=== PATIENT | female | born 1995 | race Caucasian/White ===

== ENCOUNTER 2020-01-21 18:43 | Outpatient (CLI) | payer OTHER ==
[2020-01-21 20:29] VITALS: BP 140/86; PULSE 95; RESP 16; TEMP 98.2
== END 2020-01-21 20:10 | disposition home or self-care (01) ==
LOC: FBPOP 18:43
PROVIDERS: ATTEND Obstetrics & Gynecology
DX: O99.89 Other specified diseases and conditions complicating pregnancy, childbirth and the puerperium (principal); M54.9 Dorsalgia, unspecified; Z3A.31 31 weeks gestation of pregnancy
CPT/HCPCS: 59025; 81003; G0463; 99213

== ENCOUNTER 2020-03-19 05:32 | Inpatient (IN) | payer OTHER ==
[2020-03-19] MEDS ORDERED: CARBOPROST TROMETHAMINE 250 MCG/ML 1 ML AMP IM PRN (06:11)
[2020-03-19] MEDS ORDERED: OXYTOCIN 10 UNIT/ML 1 ML VIAL IM PRN (06:11)
[2020-03-19] MEDS ORDERED: TERBUTALINE 1 MG/ML VIAL SQ PRN (06:11)
[2020-03-19] MEDS ORDERED: PENICILLIN G POTASSIUM 5,000,000 UNIT in DEXTROSE 5% IN WATER 100 ML IVPB STA ×2 (06:11)
[2020-03-19] MEDS ORDERED: LIDOCAINE 0.5% (PF) 5 MG/ML (50 ML SDV) SQ PRN (06:11)
[2020-03-19] MEDS ORDERED: METHYLERGONOVINE 0.2 MG/ML 1 ML AMP IM PRN (06:11)
[2020-03-19] MEDS ORDERED: OXYTOCIN 30 UNITS/500 ML NS 30 UNIT in SALINE 1 500ML.BAG IV SCH (06:15)
[2020-03-19] MEDS: LACTATED RINGERS 1,000 ML IV SCH ×2 (06:36→08:35)
[2020-03-19] MEDS ORDERED: BUTORPHANOL 1 MG/ML 1 ML VIAL IV PRN (06:51)
[2020-03-19 06:52] LABS: Basophils % (A) 0 %; Eosinophils # (A) 0.2 k/uL (0-0.7); Eosinophils % (A) 1 %; HCT 40.2 % (34.0-46.0); HGB 13.1 gm/dL (11.4-16.0); Lymphocytes # (A) 2.1 k/uL (1.0-4.8); Lymphocytes % (A) 15 %; MCH 28.6 pg (25.0-35.0); MCHC 32.6 g/dL (31.0-37.0); MCV 87.8 fL (80.0-100.0); Mean Platelet Volume 8.9; Monocytes # (A) 0.8 k/uL (0-1.0); Monocytes % (A) 6 %; Neutrophils # (A) 10.8 k/uL (1.3-7.7); Neutrophils % (A) 76 %; Platelet Count 214 k/uL (150-450); RBC 4.58 m/uL (3.80-5.40); RDW 12.9 % (11.5-15.5); WBC 14.2 k/uL (3.8-10.6)
[2020-03-19] MEDS ORDERED: SODIUM CHLORIDE 0.9% 100 ML BAG ONE (08:10)
[2020-03-19] MEDS ORDERED: ROPIVACAINE 5MG/ML 20ML VIAL ONE (08:10)
[2020-03-19] MEDS ORDERED: fentaNYL (PF) 50 MCG/ML 5 ML AMP ONE (08:10)
[2020-03-19] MEDS: PENICILLIN G POTASSIUM 2,500,000 UNIT in DEXTROSE 5% IN WATER 100 ML IVPB SCH ×4 (10:04→14:49)
--- NOTE | 2020-03-19 11:23 | P.HPOB ---
History of Present Illness H&P Date: 03/19/20 Chief Complaint: My water broke at 5 AM This is a 24-year-old black female 1 para 0 EDC 03/22/19 at 39-4/7 weeks' gestation. Patient presented earlier this morning with complaint of spontaneous amniorrhexis, clear fluid, which occurred at home at approximate 05 100. She was having mild sporadic uterine contractions upon admission. Ruptured membranes was diagnosed and confirmed by amnio sure testing. Fetus is been active throughout the . Past medical history is significant for scoliosis, mild. Past surgical history appendectomy at age 3 months. Current medications vitamins daily. ALLERGIES none known. Family history is essentially negative. Social history patient is single, father of the baby is present and involved. 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 history significant for blood type O+, group B strep cultures positive. Rubella status immune. VDRL testing, urine culture, hepatitis B surface antigen, gonorrhea and chlamydia cultures all negative. One-hour Glucola 117. On exam this is a pleasant black female who is 5 foot 5 inches, 199 pounds, blood pressure 145/82 on admission, vital signs otherwise stable. General physical exam is within normal limits. Cervix on exam is 2 cm dilated, posterior, long, -2 station, vertex. Amnio sure testing is consistent with ruptured membranes. heart rate is consistent with reactive NST. Impression: 39-4/7 weeks intrauterine , spontaneous amniorrhexis, positive group B strep cultures. All signs reassuring. Plan: Penicillin G prophylaxis as per protocol. Oxytocin augmentation. Analgesic options reviewed with the patient. Close maternal and surveillance. Anticipate normal spontaneous vaginal delivery. Review of Systems Constitutional: Reports as per HPI Past Medical History Past Medical History: No Reported History History of Any Multi-Drug Resistant Organisms: None Reported Past Surgical History: Appendectomy Past Anesthesia/Blood Transfusion Reactions: No Reported Reaction Past Psychological History: Anxiety Smoking Status: Never smoker Past Alcohol Use History: None Reported Past Drug Use History: None Reported - Past Family History Mother Family Medical History: No Reported History Medications and Allergies Home Medications Medication Instructions Recorded Confirmed Type Pnv,Calcium 72/Iron/Folic Acid 1 each PO DAILY 01/21/20 01/21/20 History [ Plus Tablet] Allergies Allergy/AdvReac Type Severity Reaction Status Date / Time No Known Allergies Allergy Verified 03/19/20 05:45 Exam Vital Signs Temp Pulse Resp BP 03/19/20 11:06 99.2 F 105 H 18 127/59 03/19/20 06:07 97.0 F L 101 H 16 145/82 03/19/20 05:44 97.0 F L 101 H 16 145/82 Intake and Output 03/18/20 03/19/20 03/19/20 22:59 06:59 14:59 Other: Weight 90.265 kg See dictation under HPI please Results Result Diagrams: 03/19/20 06:30 Abnormal Lab Results - Last 24 Hours (Table) 03/19/20 Range/Units 06:30 WBC 14.2 H (3.8-10.6) k/uL Neutrophils # 10.8 H (1.3-7.7) k/uL Assessment and Plan Assessment: 39-4/7 weeks intrauterine , early labor, positive group B strep cultures. All signs reassuring. Plan: Penicillin G prophylaxis per hospital protocol. Close maternal and surveillance. Analgesic options reviewed. Oxytocin per hospital protocol. Anticipate normal spontaneous vaginal delivery. Time with Patient: Less than 30
[2020-03-19] MEDS ORDERED: ACETAMINOPHEN TAB 325 MG TAB PO PRN (11:26)
[2020-03-19] MEDS ORDERED: HYDROCORTISONE 2.5% RECTAL CREAM 30 GM TUBE RECTAL PRN (11:26)
[2020-03-19] MEDS ORDERED: diphenhydrAMINE 50 MG/ML 1 ML VIAL IVP PRN ×2 (11:26)
[2020-03-19] MEDS ORDERED: SIMETHICONE 80 MG CHEWABLE PO PRN (11:26)
[2020-03-19] MEDS ORDERED: ZOLPIDEM 5 MG TAB PO PRN (11:26)
[2020-03-19] MEDS ORDERED: IBUPROFEN 600 MG TAB PO PRN (11:26)
[2020-03-19] MEDS ORDERED: diphenhydrAMINE 25 MG CAP PO PRN (11:26)
[2020-03-19] MEDS ORDERED: BENZOCAINE/MENTHOL SPRAY 1 GM/SPRAY AEROSOL TOPICAL PRN (11:26)
[2020-03-19] MEDS ORDERED: LANOLIN CREAM 5 GM TUBE TOPICAL PRN (11:26)
[2020-03-19] MEDS ORDERED: diphenhydrAMINE 50 MG CAP PO PRN (11:26)
[2020-03-19] MEDS ORDERED: WITCH HAZEL 1 EACH MED..PAD TOPICAL PRN (11:26)
--- NOTE | 2020-03-19 11:26 | P.PROBDLV ---
Vaginal Delivery Note - . Vaginal Delivery Note: This is a 24-year-old black female 1 para 0 EDC 03/22/2020 at 39-4/7 weeks' gestation. Patient presented earlier today with spontaneous amniorrhexis which occurred at home, clear fluid. remarkable for positive group B strep cultures, blood type O positive, rubella status immune. Please see my dictated history and physical for details. On admission patient was 2 cm dilated. Oxytocin was started and titrated per hospital protocol. She did receive 2 doses of penicillin G prophylaxis per our hospital protocol. Epidural was placed per her request. heart tones were reassuring throughout the first and second stages of labor. Patient became completely dilated at 1220 hrs. Perineal body was prepped and draped in usual sterile fashion. With excellent maternal expulsive efforts 's head delivered occiput anterior and she restituted accordingly. There was no nuchal cord noted. The left or anterior shoulder was gently delivered from underneath the pubic symphysis at which time the oropharynx, nasopharynx, and external nares were all bulb suctioned. Patient was officially delivered of a liveborn female at 1056 hrs. Umbilical cord was doubly clamped and ligated, she was handed to waiting nurses for evaluation where scores of 8 and 9 at one and 5 minutes respectively were given. The placenta delivered spontaneously with active management, it was inspected and noted to be intact with trivascular cord at 11 00. Uterus is then massaged. Careful inspection of the cervix, vagina, perineum, periurethral, and perirectal areas revealed a small left labial laceration. This was repaired in the usual fashion using 3-0 repeat suture. Good reapproximation was noted. Total estimated blood loss 300 mL's. Infant weighed 7 lbs. 2 oz. or 3225 g. The fundus is firm and in the midline, symmetric and 18 week size upon completion of delivery. Patient and her are allowed to begin the bonding experience in the LDR.
[2020-03-19] MEDS ORDERED: OXYTOCIN 20 UNITS/1000 ML NS 1,000 ML IV SCH (11:30)
[2020-03-19] MEDS: SENNOSIDES-DOCUSATE SODIUM 1 EACH TAB PO SCH (22:17)
[2020-03-20 05:37] LABS: Basophils % (A) 0 %; Eosinophils # (A) 0.2 k/uL (0-0.7); Eosinophils % (A) 1 %; HCT 32.2 % (34.0-46.0); HGB 10.5 gm/dL (11.4-16.0); Lymphocytes # (A) 3.1 k/uL (1.0-4.8); Lymphocytes % (A) 20 %; MCH 28.7 pg (25.0-35.0); MCHC 32.7 g/dL (31.0-37.0); MCV 87.7 fL (80.0-100.0); Mean Platelet Volume 8.6; Monocytes # (A) 0.7 k/uL (0-1.0); Monocytes % (A) 4 %; Neutrophils # (A) 11.2 k/uL (1.3-7.7); Neutrophils % (A) 72 %; Platelet Count 198 k/uL (150-450); RBC 3.67 m/uL (3.80-5.40); WBC 15.4 k/uL (3.8-10.6)
[2020-03-20] MEDS: SENNOSIDES-DOCUSATE SODIUM 1 EACH TAB PO SCH (08:02)
[2020-03-20 08:40] VITALS: BP 125/78; PULSE 76; RESP 18; TEMP 98.2
--- NOTE | 2020-03-20 10:42 | P.DS ---
Providers Date of admission: 03/19/20 06:03 Expected date of discharge: 03/20/20 Attending physician: Tonya Mendosa Primary care physician: Tonya [facility] Course: This is a 24-year-old female 1 para 0 EDC 03/22/2020 at 39-4/7 weeks' gestation. Patient presented with spontaneous amniorrhexis which occurred at home, in early spontaneous labor. remarkable for positive group B strep cultures, rubella status immune, blood type O positive. Please see admitting history and physical for details. Patient was admitted, oxytocin was started and titrated. Penicillin was given 2 doses. Epidural was placed per her request. She went on to deliver vaginally a liveborn female infant with scores of 8 and 9 at one and 5 minutes respectively. Infant weighed 3225 g or 7 lbs. 2 oz. Placenta delivered spontaneously, intact and trivascular. Please see dictated delivery note for details. This morning the patient is doing well. She is voiding, ambulating, passing flatus without difficulty. Vital signs are stable and she is afebrile. Fundus is firm and in the midline, symmetric and 18 week size. Extremities are negative for edema. Chest is clear in all irby. Breast-feeding is going well, breasts are not engorged. Patient has a breast pump at home. After discussion she is judged to be in excellent condition for discharge home. She will follow-up with me in the office in 6 weeks. I have reminded her no intercourse, tampons or douching. She will use [id number] ibuprofen products as needed for pain. She will continue taking her vitamin daily. She will call with any fevers shakes or chills, foul smelling or copious lochia, with the passage of large blood clots, with any pain not alleviated by [id number] products, or indeed with any questions difficulties or concern s. [place] infant will follow-up with electrical systems drafter in the office as recommended. Options are briefly reviewed, and we will discuss this further in the office. Patient Condition at Discharge: Good Plan - Discharge Summary Discharge Rx Participant: No New Discharge Prescriptions: No Action Pnv,Calcium 72/Iron/Folic Acid [ Plus Tablet] 1 each PO DAILY Discharge Medication List Pnv,Calcium 72/Iron/Folic Acid [ Plus Tablet] 1 each PO DAILY 01/21/20 [History] Follow up Appointment(s)/Referral(s): Tonya Mendosa MD [Primary Care Provider] - 6 Weeks Discharge Disposition: HOME SELF-CARE
--- NOTE | 2020-03-22 02:25 | P.MSEPDOC ---
Presenting Problems - Arrival Data Date of Arrival on Unit: 03/19/20 Time of Arrival on Unit: 06:14 Mode of Transport: Ambulatory - Complaint OB-Reason for Admission/Chief Complaint: Rule Out SROM Comment: Patient arrives to triage and states her water broke at 0500, clear fluid. Medical History - Information : 1 Para: 0 Term: 0 : 0 Abortions: Spontaneous or Elective: 0 Number of Living Children: 0 - Gestational Age Gestational Age by COREY (wks/days): 39 Weeks and 4 Days Review of Systems - Review of Systems Constitutional: No problems Breast: No problems ENT: No problems Cardiovascular: No problems Respiratory: No problems Gastrointestinal: No problems Genitourinary: No problems Musculoskeletal: No problems Neurological: No problems Skin: No problems Vital Signs - Temperature Temperature: 98.2 F Temperature Source: Oral - Pulse Right Brachial Pulse Rate: 76 Pulse Assessment Method: Automatic Cuff - Respirations Respiratory Rate: 18 Oxygen Delivery Method: Room Air - Blood Pressure Right Arm Blood Pressure: 125/78 Blood Pressure Mean: 93 Blood Pressure Source: Automatic Cuff Medical Screen Scoring (Pre) - Cervical Exam Dilation: 1-3 cm = 1 Membranes: Ruptured = 3 - Uterine Contractions Frequency: > 5 minutes apart = 1 Duration: N/A Intensity: N/A - Maternal Vital Signs Maternal Temperature: N/A Maternal Blood Pressure: Systolic >139 = 2 Signs of Preeclampsia: N/A Maternal Respirations: N/A - Maternal Trauma Maternal Trauma: N/A - Assessment - Baby A Baseline FHR: 140 Heart Rate - NICHD Category: Category I (Normal) = 0 NST: Reactive Position: N/A - Total Score - Baby A Total Score - Baby A: 7 - Total Score - Baby B Total Score - Baby B: 7 - Total Score - Baby C Total Score - Baby C: 7 - Level of Risk - Baby A Level of Risk - Baby A: Medium (6-9) - Level of Risk - Baby B Level of Risk - Baby B: Medium (6-9) - Level of Risk - Baby C Level of Risk - Baby C: Medium (6-9) Physician Notification (Pre) - Physician Notified Physician Notified Date: 03/19/20 Physician Notified Time: 06:03 - Notification Comment Comment: RN spoke with Dr. Mendosa. Reported positive amnisure and notable amount of clear. fluid upon examination. Cervical exam of 2/thick/high. GBS positive. Dr. Mendosa would. like patient admitted for labor. PCN ordered and pitocin started. RN updated patient. Patient is in agreement. Patient to be moved to [address]. Disposition - Disposition OB Disposition: Admit Transferred to:: [address] Discharge Date: 03/20/20 Discharge Time: 12:20 I agree with the RN Medical Screening Exam: Yes Risk & Benefit of care provided described in d/c instruction: Yes Diagnosis: LOUSE-BORNE TYPHUS
== END 2020-03-20 12:20 | disposition home or self-care (01) | DRG 807 ==
LOC: FBPOP 05:32 → 4FBP 06:03
PROVIDERS: ADMIT Obstetrics & Gynecology; ATTEND Obstetrics & Gynecology
PROC: 00HU33Z Insertion of Infusion Device into Spinal Canal, Percutaneous Approach (ICD-10-PCS; principal; 2020-03-19)
PROC: 3E0R3BZ Introduction of Anesthetic Agent into Spinal Canal, Percutaneous Approach (ICD-10-PCS; principal; 2020-03-19)
PROC: 10E0XZZ Delivery of Products of Conception, External Approach (ICD-10-PCS; principal; 2020-03-19)
PROC: 0HQ9XZZ Repair Perineum Skin, External Approach (ICD-10-PCS; principal; 2020-03-19)
DX: O99.824 Streptococcus B carrier state complicating childbirth (principal); Z37.0 Single live birth; O99.344 Other mental disorders complicating childbirth; O70.0 First degree perineal laceration during delivery; F41.9 Anxiety disorder, unspecified; M41.9 Scoliosis, unspecified; Z3A.39 39 weeks gestation of pregnancy; Z90.49 Acquired absence of other specified parts of digestive tract
CPT/HCPCS: 59025; 84112; 85025; 86850; 86900; 86901; 99213

== ENCOUNTER 2021-01-01 01:32 | Emergency (ER) | payer OTHER ==
[2021-01-01 01:37] VITALS: BP 157/94; PULSE 72; RESP 18; TEMP 98.3
[2021-01-01] MEDS ORDERED: ACET/COD 300 MG/30 MG STARTER PACK 6 TAB BTL PO STA (01:42)
[2021-01-01] MEDS ORDERED: BACITRACIN OINT 1 EACH PACKET TOPICAL ONE (01:42)
[2021-01-01] MEDS ORDERED: KETOROLAC 15 MG/ML 1 ML VIAL IM STA (01:42)
--- NOTE | 2021-01-01 01:46 | ED ---
Burn/Smoke HPI - General Chief complaint: Burn/Smoke Inhalation Stated complaint: Rt hand burn Source: patient Mode of arrival: ambulatory Limitations: no limitations - History of Present Illness Initial comments: 25 year-old female patient presents to the emergency department for evaluation of burn to the palm of her right hand. States around 1600 this afternoon she accidentally grabbed the hot end of her curling iron. States that she did initially put some ointment over the area, but it seemed to worsen her pain. She did try ibuprofen without relief. She has been applying ice which does help. She denies any difficulty with range of motion of the hand. Patient denies any headache, neck pain, back pain, chest pain, shortness of breath, dizziness, weakness, abdominal pain, nausea, vomiting, or difficulties with bowel movements or urination. - Related Data Home Medications Medication Instructions Recorded Confirmed Pnv,Calcium 72/Iron/Folic Acid 1 each PO DAILY 01/21/20 01/21/20 [ Plus Tablet] Previous Rx's Medication Instructions Recorded Acetaminophen-Codeine 300-30mg 1 tab PO Q6H PRN #12 tablet 01/01/21 [Tylenol #3] Bacitracin Zinc Oint 1 applic TOPICAL BID #15 gm 01/01/21 SILVER sulfADIAZINE Cream 1 applic TOPICAL DAILY #15 gram 01/01/21 [Silvadene 1% Cream] Allergies Allergy/AdvReac Type Severity Reaction Status Date / Time No Known Allergies Allergy Verified 01/01/21 01:37 Review of Systems ROS Statement: Those systems with pertinent positive or pertinent negative responses have been documented in the HPI. ROS Other: All systems not noted in ROS Statement are negative. Past Medical History Past Medical History: No Reported History History of Any Multi-Drug Resistant Organisms: None Reported Past Surgical History: Appendectomy Past Anesthesia/Blood Transfusion Reactions: No Reported Reaction Past Psychological History: Anxiety Smoking Status: Never smoker Past Alcohol Use History: Occasional Past Drug Use History: None Reported - Past Family History Mother Family Medical History: No Reported History General Exam Limitations: no limitations General appearance: alert, in no apparent distress, other (physical well- developed, well-nourished adult female patient in no acute distress.) Respiratory exam: Present: normal lung sounds bilaterally. Absent: respiratory distress, wheezes, rales, rhonchi, stridor Cardiovascular Exam: Present: regular rate, normal rhythm, normal heart sounds. Absent: systolic murmur, diastolic murmur, rubs, gallop, clicks Extremities exam: Present: full ROM, normal capillary refill, other (There is s econd degree burn noted over the palmar aspect of the right hand, over the upper palm at the base of her fingers. Over the palmar aspect of digits 2-5. Brice do not ecompass the joints. ). Absent: normal inspection, tenderness, pedal edema, joint swelling, calf tenderness Neurological exam: Present: alert, oriented X3, CN II-XII intact Psychiatric exam: Present: normal affect, normal mood Skin exam: Present: warm, dry, intact, normal color. Absent: rash Course Vital Signs 01/01/21 01:33 Temperature 98.3 F Pulse Rate 72 Respiratory 18 Rate Blood Pressure 157/94 O2 Sat by Pulse 97 Oximetry Medical Decision Making - Medical Decision Making 25 old female patient presents to the emergency department today for evaluation of burn to the right hand. Physical examination did reveal second degree brice over the palmar aspect of the hand over the upper palm at the base of the fingers and over the palmar aspect of the fingers but not crossing joint lines. This is less than 1% total body surface area. We did apply bacitracin ointment over the burned areas and a dressing. She is given an IM injection of Toradol and oral Tylenol with Codeine. She is given a starter pack of Tylenol, and prescription for home. She is also given prescription for bacitracin to use for the first 3-4 days. She is instructed to switch to Silvadene if necessary after the fourth day. She is instructed to keep areas clean and dry. She is instructed to perform range of motion of the hand and fingers several times are up-to-date. She is instructed to follow-up with her primary care physician for recheck in 1-2 days. Return parameters were discussed in detail. She verbalizes understanding and agrees with this plan. Case discussed with Dr. Flynn. Disposition Clinical Impression: Second degree burn of right hand Disposition: HOME SELF-CARE Condition: Good Instructions (If sedation given, give patient instructions): Second Degree Burn (ED) Additional Instructions: use ointment twice daily. Switch to Silvadene cream on day 4. Keep covered. Take pain medication as directed. Follow-up with your primary care physician for recheck in 1-2 days. Prescriptions: Bacitracin Zinc Oint 1 applic TOPICAL BID #15 gm SILVER sulfADIAZINE Cream [Silvadene 1% Cream] 1 applic TOPICAL DAILY #15 gram Acetaminophen-Codeine 300-30mg [Tylenol #3] 1 tab PO Q6H PRN #12 tablet PRN Reason: Pain Is patient prescribed a controlled substance at d/c from ED?: Yes When asked, does pt state using other controlled substances?: No If prescribed controlled substance>3 days was MAPS reviewed?: Prescribed <3 Days If opioid is for acute pain is fill amount 7 days or less?: Yes If Rx opioid, was Start Talking consent form obtained?: Yes Referrals: Miguel Gunter MD [Primary Care Provider] - 1-2 days Time of Disposition: 01:46
== END 2021-01-01 02:03 | disposition home or self-care (01) ==
LOC: EC 01:32
DX: T23.251A Burn of second degree of right palm, initial encounter (principal); T31.0 Burns involving less than 10% of body surface; Z90.49 Acquired absence of other specified parts of digestive tract; X18.XXXA Contact with other hot metals, initial encounter
CPT/HCPCS: 99283; 96372; J1885

== ENCOUNTER 2022-03-02 22:14 | Emergency (ER) | payer OTHER ==
[2022-03-02 22:20] VITALS: BP 150/95; PULSE 76; RESP 18; TEMP 97.2
[2022-03-02 23:54] LABS: Basophils # (A) 0.1 k/uL (0-0.2); Basophils % (A) 1 %; Eosinophils # (A) 0.2 k/uL (0-0.7); Eosinophils % (A) 3 %; HCT 41.4 % (34.0-46.0); HGB 13.2 gm/dL (11.4-16.0); Lymphocytes # (A) 3.7 k/uL (1.0-4.8); Lymphocytes % (A) 45 %; MCH 28.7 pg (25.0-35.0); MCHC 31.9 g/dL (31.0-37.0); MCV 89.9 fL (80.0-100.0); Mean Platelet Volume 7.6; Monocytes # (A) 0.4 k/uL (0-1.0); Monocytes % (A) 5 %; Neutrophils # (A) 3.7 k/uL (1.3-7.7); Neutrophils % (A) 45 %; Platelet Count 266 k/uL (150-450); RBC 4.61 m/uL (3.80-5.40); RDW 11.7 % (11.5-15.5); WBC 8.2 k/uL (3.8-10.6)
--- NOTE | 2022-03-02 23:58 | XR ---
EXAMINATION TYPE: XR chest 2V DATE OF EXAM: 03/02/2022 COMPARISON: NONE HISTORY: Chest pain TECHNIQUE: 2 views FINDINGS: Heart and mediastinum are normal. Lungs are clear. Diaphragm is normal. Bony thorax appears normal. IMPRESSION: Normal chest
[2022-03-03 00:03] LABS: African American GFR (CKD) >90 (>60 ml/min/1.73 sqM); Anion Gap 6 mmol/L; Blood Urea Nitrogen 17 mg/dL (7-17); Calcium 9.4 mg/dL (8.4-10.2); Carbon Dioxide 28 mmol/L (22-30); Chloride 105 mmol/L (98-107); Glucose 94 mg/dL (74-99); Non-African American GFR(CKD) >90 (>60 ml/min/1.73 sqM); Potassium 4.1 mmol/L (3.5-5.1); Sodium 139 mmol/L (137-145)
--- NOTE | 2022-03-03 00:22 | ED ---
General Adult HPI - General Chief complaint: Chest Pain Stated complaint: Chest Pain Time Seen by Provider: 03/02/22 22:43 Source: patient, RN notes reviewed Mode of arrival: wheelchair Limitations: no limitations - History of Present Illness Initial comments: 26-year-old female presents to the emergency department for evaluation of left anterior chest pain that radiates to the left shoulder. Patient states the left arm feels somewhat numb, but denies loss of sensation or strength. Patient reports prior episodes of this chest discomfort since 2016, though has never had it evaluated. Patient states the pain began while at rest today, however does report vigorous physical activity recently, though this is not unusual for her. Patient denies any accompanying symptoms such as cough, shortness of breath, difficulty breathing, nausea, vomiting, diarrhea, or dysuria. - Related Data Home Medications Medication Instructions Recorded Confirmed Pnv,Calcium 72/Iron/Folic Acid 1 each PO DAILY 01/21/20 01/21/20 [ Plus Tablet] Previous Rx's Medication Instructions Recorded Acetaminophen-Codeine 300-30mg 1 tab PO Q6H PRN #12 tablet 01/01/21 [Tylenol #3] Bacitracin Zinc Oint 1 applic TOPICAL BID #15 gm 01/01/21 SILVER sulfADIAZINE Cream 1 applic TOPICAL DAILY #15 gram 01/01/21 [Silvadene 1% Cream] Allergies Allergy/AdvReac Type Severity Reaction Status Date / Time No Known Allergies Allergy Verified 01/01/21 01:37 Review of Systems ROS Statement: Those systems with pertinent positive or pertinent negative responses have been documented in the HPI. ROS Other: All systems not noted in ROS Statement are negative. Past Medical History Past Medical History: No Reported History History of Any Multi-Drug Resistant Organisms: None Reported Past Surgical History: Appendectomy Past Anesthesia/Blood Transfusion Reactions: No Reported Reaction Past Psychological History: Anxiety Smoking Status: Current some day smoker Past Alcohol Use History: Occasional Past Drug Use History: Marijuana - Past Family History Mother Family Medical History: No Reported History General Exam Limitations: no limitations (Well-developed, well-nourished female in no acute distress. Initial temperature 97.2, pulse 76, respirations 18, blood pressure 150/95, pulse ox 98% on room air.) General appearance: alert, in no apparent distress Neck exam: Present: normal inspection, full ROM. Absent: tenderness, meningismus, lymphadenopathy Respiratory exam: Present: normal lung sounds bilaterally. Absent: respiratory distress, wheezes, rales, rhonchi, stridor, chest wall tenderness (Chest pain is not worsened with movement, activity, or palpation), accessory muscle use Cardiovascular Exam: Present: regular rate, normal rhythm, normal heart sounds. Absent: systolic murmur, diastolic murmur, rubs, gallop, clicks GI/Abdominal exam: Present: soft, normal bowel sounds. Absent: distended, tenderness, guarding, rebound, rigid Extremities exam: Present: normal inspection, full ROM, normal capillary refill. Absent: pedal edema Neurological exam: Present: alert, oriented X3, CN II-XII intact Psychiatric exam: Present: normal affect, normal mood Skin exam: Present: warm, dry, intact, normal color. Absent: rash Course Vital Signs 03/02/22 22:16 Temperature 97.2 F L Pulse Rate 76 Respiratory 18 Rate Blood Pressure 150/95 O2 Sat by Pulse 98 Oximetry Medical Decision Making - Medical Decision Making This is a healthy 26-year-old female who presents to the emergency department for evaluation of left anterior chest wall pain. Upon exam, patient is resting comfortably, well-appearing, and in no acute distress. Her physical exam findings are unremarkable. Chest pain is not reproducible with activity, however is intermittent in nature and has been recurrent since 2016 and has had recent strenuous activity including episodes of heavy lifting. Patient is not experiencing any shortness of breath, difficulty breathing, palpitations, dizziness, or diaphoresis. Chest x-ray was negative. Laboratory studies were within normal limits. Troponin was negative. EKG shows normal sinus rhythm. Patient is instructed to take Motrin OTC 2-3 times daily for 3 days as this is likely musculoskeletal in nature. She does not have a PCP therefore parameters were reviewed at length. Patient verbalizes understanding and agrees with this plan. Attending: Gee. - Lab Data Result diagrams: 03/02/22 23:42 03/02/22 23:42 Lab Results 03/02/22 03/02/22 03/02/22 Range/Units 23:42 23:42 23:42 WBC 8.2 (3.8-10.6) k/uL RBC 4.61 (3.80-5.40) m/uL Hgb 13.2 (11.4-16.0) gm/dL Hct 41.4 (34.0-46.0) % MCV 89.9 (80.0-100.0) fL MCH 28.7 (25.0-35.0) pg MCHC 31.9 (31.0-37.0) g/dL RDW 11.7 (11.5-15.5) % Plt Count 266 (150-450) k/uL MPV 7.6 Neutrophils % 45 % Lymphocytes % 45 % Monocytes % 5 % Eosinophils % 3 % Basophils % 1 % Neutrophils # 3.7 (1.3-7.7) k/uL Lymphocytes # 3.7 (1.0-4.8) k/uL Monocytes # 0.4 (0-1.0) k/uL Eosinophils # 0.2 (0-0.7) k/uL Basophils # 0.1 (0-0.2) k/uL Sodium 139 (137-145) mmol/L Potassium 4.1 (3.5-5.1) mmol/L Chloride 105 (98-107) mmol/L Carbon Dioxide 28 (22-30) mmol/L Anion Gap 6 mmol/L BUN 17 (7-17) mg/dL Creatinine 0.86 (0.52-1.04) mg/dL Est GFR (CKD-EPI)AfAm >90 (>60 ml/min/1.73 sqM) Est GFR (CKD-EPI)NonAf >90 (>60 ml/min/1.73 sqM) Glucose 94 (74-99) mg/dL Calcium 9.4 (8.4-10.2) mg/dL Troponin I <0.012 (0.000-0.034) ng/mL - EKG Data EKG shows normal: sinus rhythm Rate: normal EKG Comments: EKG was obtained at 2232 showing sinus rhythm. Ventricular rate 70, HI interval 168, QRS duration 91, QT/QTC 383/404. - Radiology Data Radiology results: report reviewed, image reviewed Two-view chest x-ray was obtained. Report was reviewed in its entirety. Impression per Dr. Heaton is normal chest. Disposition Clinical Impression: Non-cardiac chest pain Disposition: HOME SELF-CARE Condition: Stable Instructions (If sedation given, give patient instructions): Noncardiac Chest Pain (ED) Additional Instructions: Your laboratory findings and chest x-ray were normal. You need to follow up with your PCP for further evaluation next week. Do not hesitate to return to the emergency department with any new, worsening, or concerning symptoms. Is patient prescribed a controlled substance at d/c from ED?: No Referrals: None,Stated [Primary Care Provider] - 1-2 days Time of Disposition: 00:22
== END 2022-03-03 00:55 | disposition home or self-care (01) ==
LOC: EC 22:14
DX: R07.89 Other chest pain (principal); F17.200 Nicotine dependence, unspecified, uncomplicated
CPT/HCPCS: 36415; 71046; 80048; 84484; 85025; 99285

== ENCOUNTER 2024-08-11 07:07 | Inpatient (IN) | payer OTHER ==
[2024-08-11] MEDS ORDERED: TERBUTALINE 1 MG/ML VIAL SQ PRN (07:54)
[2024-08-11] MEDS ORDERED: TRANEXAMIC 1,000 MG/100ML-NACL 1,000 MG in EMPTY BAG 1 BAG IV PRN (07:54)
[2024-08-11] MEDS ORDERED: miSOPROStoL 200 MCG TAB RECTAL PRN (07:54)
[2024-08-11] MEDS ORDERED: CARBOPROST TROMETHAMINE 250 MCG/ML 1 ML AMP IM PRN (07:54)
[2024-08-11] MEDS ORDERED: miSOPROStoL 200 MCG TAB PO PRN (07:54)
[2024-08-11] MEDS ORDERED: OXYTOCIN 10 UNIT/ML 1 ML VIAL IM PRN (07:54)
[2024-08-11] MEDS ORDERED: METHYLERGONOVINE 0.2 MG/ML 1 ML AMP IM PRN (07:54)
[2024-08-11] MEDS ORDERED: OXYTOCIN 30 UNITS/500 ML NS 30 UNIT in SALINE 1 500ML.BAG IV SCH (08:00)
[2024-08-11] MEDS: LACTATED RINGERS 1,000 ML IV SCH (08:12)
[2024-08-11 08:23] LABS: Basophils % (A) 0 %; Eosinophils # (A) 0.1 k/uL (0-0.7); Eosinophils % (A) 1 %; HCT 39.6 % (34.0-46.0); HGB 13.1 gm/dL (11.4-16.0); Lymphocytes % (A) 18 %; MCH 29.3 pg (25.0-35.0); MCHC 33.2 g/dL (31.0-37.0); MCV 88.3 fL (80.0-100.0); Mean Platelet Volume 7.8; Monocytes # (A) 0.5 k/uL (0-1.0); Monocytes % (A) 4 %; Neutrophils # (A) 8.2 k/uL (1.3-7.7); Neutrophils % (A) 74 %; Platelet Count 246 k/uL (150-450); RBC 4.48 m/uL (3.80-5.40); RDW 12.6 % (11.5-15.5)
[2024-08-11] MEDS: AMPICILLIN 2,000 MG in SODIUM CHLORIDE 0.9% 100 ML IVPB STA (08:31)
[2024-08-11] MEDS: OXYTOCIN 30 UNITS/500 ML NS 30 UNIT in SALINE 1 500ML.BAG IV SCH (09:17)
[2024-08-11] MEDS: LIDOCAINE 0.5% (PF) 5 MG/ML (50 ML SDV) SQ PRN (09:18)
[2024-08-11] MEDS ORDERED: diphenhydrAMINE 50 MG CAP PO PRN (09:26)
[2024-08-11] MEDS ORDERED: SIMETHICONE 80 MG CHEWABLE PO PRN (09:26)
[2024-08-11] MEDS ORDERED: HYDROCORTISONE 2.5% RECTAL CREAM 30 GM TUBE RECTAL PRN (09:26)
[2024-08-11] MEDS ORDERED: ZOLPIDEM 5 MG TAB PO PRN (09:26)
[2024-08-11] MEDS ORDERED: diphenhydrAMINE 50 MG/ML 1 ML VIAL IVP PRN ×2 (09:26)
[2024-08-11] MEDS ORDERED: diphenhydrAMINE 25 MG CAP PO PRN (09:26)
[2024-08-11] MEDS ORDERED: LANOLIN CREAM 1 GM TUBE TOPICAL PRN (09:26)
[2024-08-11] MEDS: BENZOCAINE/MENTHOL SPRAY 1 GM/SPRAY AEROSOL TOPICAL PRN (09:37)
[2024-08-11] MEDS: IBUPROFEN 600 MG TAB PO SCH (09:37)
[2024-08-11] MEDS ORDERED: AMPICILLIN 1,000 MG in SODIUM CHLORIDE 0.9% 50 ML IVPB SCH (12:00)
--- NOTE | 2024-08-11 20:17 | P.HPOB ---
History of Present Illness H&P Date: 08/11/24 Chief Complaint: IUP at 40-6/7 weeks, labor 28-year-old 2 para 1 at 40-6/7 weeks, estimated due date of 08/05 that presents with complaints of regular painful contractions. Patient states contractions started on 11 PM last night. Patient denies loss of fluid. Mariann cordero has been receiving routine care which has been essentially uncomplicated. On blood work this patient has a blood type of O+, GBS status is pending. Review of Systems Constitutional: Denies chills, Denies fatigue, Denies fever Ears, nose, mouth and throat: Denies headache Cardiovascular: Reports leg edema Respiratory: Denies dyspnea Gastrointestinal: Denies nausea Genitourinary: Reports Past Medical History Past Medical History: No Reported History History of Any Multi-Drug Resistant Organisms: None Reported Past Surgical History: Appendectomy Additional Past Surgical History / Comment(s): large intenstine removal as Past Anesthesia/Blood Transfusion Reactions: No Reported Reaction Past Psychological History: Anxiety Smoking Status: Never smoker Past Alcohol Use History: None Reported Past Drug Use History: None Reported - Past Family History Mother Family Medical History: No Reported History Medications and Allergies Home Medications Medication Instructions Recorded Confirmed Type Vit No.180/Iron/Folic 1 each PO DAILY 01/21/20 01/21/20 History [ Plus Tablet] Allergies Allergy/AdvReac Type Severity Reaction Status Date / Time No Known Allergies Allergy Verified 08/11/24 07:36 Exam Osteopathic Statement: *. No significant issues noted on an osteopathic structural exam other than those noted in the History and Physical/Consult. Vital Signs Temp Pulse Resp BP 08/11/24 08:01 97.9 F 83 16 136/98 Intake and Output 08/10/24 08/11/24 08/11/24 22:59 06:59 14:59 Other: Weight 86.183 kg Targeted physical exam is performed this date General Is a well-nourished well- developed female in no acute distress, breathing is nonlabored, heart has a regular rate and rhythm, abdomen is gravid, heart tones noted category 1, and and she is yani every 3 minutes. On cervical exam she is 9/100/0 station amniotomy was performed and clear fluid was obtained. Results Result Diagrams: 08/11/24 08:09 Abnormal Lab Results - Last 24 Hours (Table) 08/11/24 Range/Units 08:09 WBC 11.0 H (3.8-10.6) k/uL Neutrophils # 8.2 H (1.3-7.7) k/uL Assessment and Plan (1) Post-dates Current Visit: Yes Status: Acute Code(s): O48.0 - POST-TERM SNOMED Code(s): 04994939 (2) Active labor Current Visit: Yes Status: Acute Code(s): GIC9354 - SNOMED Code(s): 601599648 Plan: 28-year-old G2, P1 at 40-6/7 weeks that presents in active labor. Patient is requesting epidural. Anesthesia will be notified when labs are completed. Anticipate spontaneous vaginal delivery.
--- NOTE | 2024-08-11 20:18 | P.PROBDLV ---
Vaginal Delivery Note - . Vaginal Delivery Note: Findings viable female delivered at 903, weight of 6 pounds 10.7 ounces, Apgars of 9 and 9 at 1 and 5 minutes respectively. 28-year-old 2 para 1 at 40-6/7 weeks that presents to labor and delivery in active labor. Patient was 5-6 upon admission and quickly progressed to 8 to 9 cm. Anesthesia was notified of her desire for epidural but given advanced dilation epidural was not placed. Patient underwent amniotomy clear fluid was obtained. Patient was noted to be completely dilated and began pushing. With excellent maternal effort patient had a normal spontaneous vaginal delivery of a viable female . After 2-minute delay the umbilical cord was doubly clamped and cut. The stent was delivered spontaneously intact with a three- vessel cord being noted. Spontaneous cry was noted from the . On inspection the patient's vaginal vault a clitoral laceration was appreciated. This was injected with lidocaine and repaired with 4-0 chromic in a running locked fashion. Hemostasis was noted after closure. No other vaginal lacerations were appreciated upon inspection. Uterus was noted be firm and below the umbilicus. Estimated blood loss 200 cc. All counts were noted be correct x 2 at the end of the delivery. Patient and tolerated delivery well and are resting comfortably.
[2024-08-11] MEDS: SENNOSIDES-DOCUSATE SODIUM 1 EACH TAB PO SCH (20:22)
[2024-08-11] MEDS: IBUPROFEN 600 MG TAB PO PRN (21:31)
[2024-08-12 07:59] LABS: Basophils # (A) 0.1 k/uL (0-0.2); Basophils % (A) 0 %; Eosinophils # (A) 0.1 k/uL (0-0.7); Eosinophils % (A) 1 %; HCT 35.3 % (34.0-46.0); HGB 11.7 gm/dL (11.4-16.0); Lymphocytes # (A) 2.8 k/uL (1.0-4.8); Lymphocytes % (A) 22 %; MCH 29.3 pg (25.0-35.0); MCHC 33.1 g/dL (31.0-37.0); MCV 88.6 fL (80.0-100.0); Mean Platelet Volume 8.3; Monocytes # (A) 0.6 k/uL (0-1.0); Monocytes % (A) 5 %; Neutrophils # (A) 8.8 k/uL (1.3-7.7); Neutrophils % (A) 70 %; Platelet Count 202 k/uL (150-450); RBC 3.98 m/uL (3.80-5.40); RDW 13.1 % (11.5-15.5); WBC 12.6 k/uL (3.8-10.6)
--- NOTE | 2024-08-12 13:03 | P.PNOBGVD ---
Subjective - Subjective Principal diagnosis: day #1 Interval history: Patient is doing well overall, remains in the nursery on oxygen treatment. Patient had an episode of desaturation last evening, labs were drawn and was begun on oxygen treatment. Please see pediatric notes for full details. Patient states lochia is minimal. Her pain is well-controlled. Patient reports: Reports appetite normal, Reports voiding normally, Reports pain well controlled, Reports ambulating normally [place]: doing well (In special care nursery) Objective - Latest Vital Signs Latest vital signs: Vital Signs Temp Pulse Resp BP Pulse Ox 08/12/24 08:00 98.0 F 91 16 114/69 97 08/12/24 00:00 97.9 F 67 16 135/89 97 08/11/24 16:00 98.3 F 80 16 136/83 Intake and Output 08/11/24 08/12/24 08/12/24 22:59 06:59 14:59 Other: Voiding Method Toilet # Voids 1 1 1 - Exam Extremities: Present: normal Abdomen: Present: normal appearance, soft Uterus: Present: normal, firm - Labs Labs: Abnormal Lab Results - Last 24 Hours (Table) 08/12/24 Range/Units 07:17 WBC 12.6 H (3.8-10.6) k/uL Neutrophils # 8.8 H (1.3-7.7) k/uL Assessment and Plan (1) Post-dates Current Visit: Yes Status: Acute Code(s): O48.0 - POST-TERM SNOMED Code(s): 80302476 (2) Active labor Current Visit: Yes Status: Acute Code(s): [id number] - SNOMED Code(s): 382536101 (3) Status post vaginal delivery Current Visit: Yes Status: Acute Code(s): [id number] - SNOMED Code(s): 279052622 (4) Obstetrical laceration Current Visit: Yes Status: Acute Code(s): O71.9 - OBSTETRIC TRAUMA, UNSPECIFIED SNOMED Code(s): 573961424 Plan: Patient is overall doing well. Encourage increased ambulation and routine care. does remain in the nursery therefore patient desires to stay to be close to her ..
[2024-08-13 08:49] VITALS: BP 106/61; PULSE 75; RESP 15; TEMP 97.9
--- NOTE | 2024-08-13 09:42 | P.DS ---
Providers Date of admission: 08/11/24 07:43 Expected date of discharge: 08/13/24 Attending physician: Sruthi Glass Primary care physician: Stated None - Discharge Diagnosis(es) (1) Post-dates Current Visit: Yes Status: Acute (2) Active labor Current Visit: Yes Status: Acute (3) Status post vaginal delivery Current Visit: Yes Status: Acute (4) Obstetrical laceration Current Visit: Yes Status: Acute Hospital Course: 28-year-old G2 now P2 that presented to labor and delivery on 08/11 at 40-6/7 weeks in active labor. For full details on the patient please see the dictated history and physical. Patient had been receiving routine care which had been essentially uncomplicated. Patient was admitted and made quick progress to 9 cm. Patient underwent amniotomy clear fluid was obtained. Patient progressed to complete. Patient began pushing and had a normal spontaneous vaginal delivery of a viable female at 903, weight of 6 pounds 10.7 ounces. Patient did sustain a clitoral laceration during delivery. This was repaired in the usual fashion with 4-0 chromic. Patient has done well . On this day #2 she is ambulating and voiding without difficulty. She is tolerating a regular diet without nausea or vomiting. is in the nursery for observation, and has been weaned off oxygen. Patient Condition at Discharge: Good Plan - Discharge Summary New Discharge Prescriptions: No Action Vit No.180/Iron/Folic [ Plus Tablet] 1 each PO DAILY Discharge Medication List Vit No.180/Iron/Folic [ Plus Tablet] 1 each PO DAILY 01/21/20 [History] Follow up Appointment(s)/Referral(s): Sruthi Glass DO [Doctor of Osteopathic Medicine] - 09/22/24 11:30 am Patient Instructions/Handouts: Vaginal Delivery (GEN), Vaginal Delivery (DC) Activity/Diet/Wound Care/Special Instructions: No intercourse, tampons or tub baths. No heavy lifting greater than a gallon of milk. No driving for two weeks. Call with any fever, shakes or chills, with any pain not alleviated by over the counter meds, or with any questions or concerns. [id number] ibuprofen 600 mg 3 tablets every 6 hours as needed for pain. Discharge Disposition: HOME SELF-CARE
== END 2024-08-13 15:12 | disposition home or self-care (01) | DRG 560 ==
LOC: FBPOP 07:07 → 4FBP 07:43
PROVIDERS: ADMIT Obstetrics & Gynecology Obstetrics; ATTEND Obstetrics & Gynecology Obstetrics
PROC: 10E0XZZ Delivery of Products of Conception, External Approach (ICD-10-PCS; principal; 2024-08-11)
PROC: 0UQG7ZZ Repair Vagina, Via Natural or Artificial Opening (ICD-10-PCS; principal; 2024-08-11)
PROC: 10907ZC Drainage of Amniotic Fluid, Therapeutic from Products of Conception, Via Natural or Artificial Opening (ICD-10-PCS; principal; 2024-08-11)
DX: O48.0 Post-term pregnancy (principal); O71.4 Obstetric high vaginal laceration alone; Z3A.40 40 weeks gestation of pregnancy; Z37.0 Single live birth; Z28.310 Unvaccinated for COVID-19; Z28.21 Immunization not carried out because of patient refusal
CPT/HCPCS: 85025; 86850; 86900; 86901